=== PATIENT | female | born 1985 | race Caucasian/White ===

== ENCOUNTER 2021-02-25 09:24 | Inpatient (IN) ==
[2021-02-25] MEDS ORDERED: KETOROLAC TROMETHAMINE 15 MG/ML VIAL IV STA (09:37)
[2021-02-25] MEDS ORDERED: SODIUM CHLORIDE 0.9% 1000ML 1,000 ML IV ONE ×2 (09:37→12:22)
[2021-02-25] MEDS ORDERED: ONDANSETRON INJ 2 MG/ML 2 ML VIAL IV STA (09:37)
--- NOTE | 2021-02-25 09:44 | Emergency Department Note ---
History of Present Illness General Chief complaint: Abdominal Pain Stated complaint: AB PAIN Time Seen by Provider: 02/25/21 09:24 Source: patient Mode of arrival: ambulatory Limitations: no limitations History of Present Illness Maximum Pain Intensity: 7 This patient is a 36-year-old female who presents to the emergency department for evaluation of back pain. Patient states that she initially developed some back pain about 1 week ago. She initially thought it was a muscle spasm. She states that the pain was intermittent at that time. She states this also started a day after eating ice cream, which typically does give her some gas and she thought this may be related. Throughout the week, her pain was in termittent, mild and easily treated with Advil. She states that this morning, she developed severe pain in the left side of the back, around the area of her lower ribs. She had her massage the area which initially seemed to help, but she began feeling worse. She states that the pain radiates from her left flank down into her pelvis and lower abdomen. She rates her current discomfort an 8/10 but states that the pain intermittently becomes more severe, up to a 10/10. She did take 2 Advil this morning. She vomited twice prior to arrival. She was given 5 mg of morphine and 4 mg of Zofran in the ambulance which did help somewhat. She denies any history of similar symptoms. She de nies any injury to the back. She denies urinary symptoms or fevers. She has had a prior tubal ligation. Home Medications Medication Instructions Recorded Confirmed Type No Known Home Medications 02/25/21 02/25/21 History Allergies Allergy/AdvReac Type Severity Reaction Status Date / Time shellfish derived Allergy Intermediate HIVES Verified 02/25/21 11:37 bee venom protein (honey bee) Allergy Mild RASH Verified 02/25/21 11:37 Past Med/Surg History Medical History Asthma mild, rarely requires inhaler Psoriasis Tobacco use Surgical History H/O tubal ligation Social History Smoking Status: Current every day smoker Tobacco Type: Cigarettes Cigarettes Per Day: 8-10; Second Hand Exposure: No; Do You Dip or Chew Tobacco: No; Tobacco Cessation Education Requested by Patient: No Hx Alcohol Use: Yes Alcohol type: wine Hx Substance Use: No Preferred Language: Malawian Communication Ability: Effective 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 Beliefs That Will Affect Care: None Current Living Situation: Spouse Other Information That Helps Us Care for You: No Feels Safe at Home: Yes Safety Concerns: Feels Safe At This Time Assistive Devices: Glasses Review of Systems A total of 10 systems reviewed and were otherwise negative Physical Exam Vital Signs Vital Signs - 24 hr 02/25/21 09:28 02/25/21 09:29 02/25/21 09:39 Temperature 36.5 C Temperature Source Oral Pulse Rate 46 L 75 Pulse Rate from SpO2 Sensor 45 L Respiratory Rate 20 18 Respiratory Effort / Characteristics Non-Labored Spontaneous Respiratory Depth Normal Blood Pressure 131/75 131/75 Blood Pressure Mean 93 93 Blood Pressure Position Lying Pulse Oximetry 100 100 93 Oxygen Delivery Method Room Air Room Air Sepsis Recent Fever Within 48 Hours No Sepsis New/Unexplained Change in Mental Status No Sepsis Action Taken by Nursing No Action Required VITALS: Vitals are noted on the nurse's note and reviewed by myself. GENERAL: This is a 36-year-old female, in no acute distress but uncomfortable appearing, well-developed well-nourished. SKIN: The skin was without rashes. EARS: External auditory canals clear, tympanic membranes pearly peacock without erythema or effusion bilaterally. EYES: Pupils equal round and reactive to light and accommodation. MOUTH: Mucous membranes moist. NECK: Supple without nuchal rigidity. No lymphadenopathy. HEART: Regular rate and rhythm without murmurs gallops or rubs. LUNGS: Clear to auscultation bilaterally without wheezes, rales or rhonchi. ABDOMEN: Positive bowel sounds x 4. Soft, nontender to palpation. No guarding or rebound tenderness. Positive left CVA tenderness. NEURO: Patient was alert and oriented to person place and time. Course Administered Medications Morphine Sulfate (Morphine Sulfate 4 Mg/Ml 1 Ml Carp\Vial) 4 mg IV Q4H PRN PRN Reason: pain Stop: 03/11/21 13:11 Last Admin: 02/25/21 14:21 Dose: 4 mg Documented by: [id number] Discontinued Medications Hydromorphone HCl (Hydromorphone Inj 0.5 Mg/0.5 Ml Syr) 0.5 mg IV NOW STA Stop: 02/25/21 11:25 Last Admin: 02/25/21 11:45 Dose: 0.5 mg Documented by: [id number] Sodium Chloride (Nss 1000ml) 1,000 mls @ 999 mls/hr IV .Q1H1M ONE Stop: 02/25/21 10:37 Last Infusion: 02/25/21 12:52 Dose: 0 mls/hr Documented by: [id number] Admin: 02/25/21 09:53 Dose: 999 mls/hr Documented by: [id number] Sodium Chloride (Nss 1000ml) 1,000 mls @ 999 mls/hr IV .Q1H1M ONE Stop: 02/25/21 13:22 Last Infusion: 02/25/21 14:17 Dose: 0 mls/hr Documented by: [id number] Admin: 02/25/21 13:07 Dose: 999 mls/hr Documented by: [id number] Ketorolac Tromethamine (Ketorolac Tromethamine 15 Mg/Ml Vial) 15 mg IV NOW STA Stop: 02/25/21 09:38 Last Admin: 02/25/21 09:54 Dose: 15 mg Documented by: [id number] Ondansetron HCl (Ondansetron Inj 2 Mg/Ml 2 Ml Vial) 4 mg IV NOW STA Stop: 02/25/21 09:38 Last Admin: 02/25/21 09:54 Dose: 4 mg Documented by: [id number] Tamsulosin HCl (Tamsulosin Hcl 0.4 Mg Cap) 0.4 mg PO NOW ONE Stop: 02/25/21 13:16 Last Admin: 02/25/21 14:06 Dose: Not Given Documented by: [id number] Tamsulosin HCl (Tamsulosin Hcl 0.4 Mg Cap) Confirm Administered Dose 0.4 mg .ROUTE .STK-MED ONE Stop: 02/25/21 13:38 Last Admin: 02/25/21 13:40 Dose: 0.4 mg Documented by: [id number] Medical Decision Making Differential Diagnosis Differential diagnosis includes renal calculus, pyelonephritis, musculoskeletal pain, ruptured AAA, aortic dissection, diverticulitis, perforated viscus, bowel obstruction, biliary pathology, pancreatitis, PE, pneumonia, pneumothorax, trauma, herpes zoster, malignancy, among others. Home Medications Current Medication List: was personally reviewed by me Laboratory Data Attestation: I reviewed the patient's lab results. Result diagrams: 02/25/21 09:32 02/25/21 09:32 Lab Results 02/25/21 02/25/21 Range/Units 09:32 09:32 WBC 14.46 H (4.8-10.8) K/uL RBC 4.98 (4.2-5.4) M/uL Hgb 14.7 (12.0-16.0) g/dL Hct 43.5 (37-47) % MCV 87.3 (80-100) fL MCH 29.5 (25-34) pg MCHC 33.8 (32-36) g/dL RDW Std Deviation 43.9 (36.4-46.3) fL RDW Coeff of Gisel 13.7 (11.5-14.5) % Plt Count 249 (130-400) K/uL MPV 11.1 H (7.4-10.4) fL Immature Gran % (Auto) 0.3 % Neut % (Auto) 84.7 % Lymph % (Auto) 9.9 % Door % (Auto) 4.1 % Eos % (Auto) 0.9 % Baso % (Auto) 0.1 % Neut # (Auto) 12.24 H (1.4-6.5) K/uL Lymph # (Auto) 1.43 (1.2-3.4) K/uL Door # (Auto) 0.59 (0.11-0.59) K/uL Eos # (Auto) 0.13 (0-0.5) K/uL Baso # (Auto) 0.02 (0-0.2) K/uL Immature Gran # (Auto) 0.05 H (0.00-0.02) K/uL Sodium 139 (136-145) mmol/L Potassium 3.8 (3.5-5.1) mmol/L Chloride 110 H (98-107) mmol/L Carbon Dioxide 25 (21-32) mmol/L Anion Gap 4.0 (3-11) BUN 12 (7-18) mg/dl Creatinine 0.65 (0.6-1.2) mg/dl Est Cr Clr Drug Dosing 116.7 ml/min Est GFR ( Amer) 132.4 ml/min Est GFR (Non-Af Amer) 114.2 ml/min BUN/Creatinine Ratio 19.0 (10-20) Glucose 100 H (70-99) mg/dl Calcium 8.9 (8.5-10.1) mg/dl Total Bilirubin 0.6 (0.2-1) mg/dl AST 13 L (15-37) U/L ALT 20 (12-78) U/L Alkaline Phosphatase 58 (45-117) U/L Total Protein 7.2 (6.4-8.2) gm/dl Albumin 3.8 (3.4-5.0) gm/dl Globulin 3.4 (2.5-4.0) gm/dl Albumin/Globulin Ratio 1.1 (0.9-2) Lipase 95 (73-393) U/L Imaging Data Attestation: I personally reviewed and interpreted this imaging study as follows: Radiologist's Impression: Abdomen/Pelvis CT 02/25/21 09:44 CT SCAN OF THE ABDOMEN AND PELVIS WITHOUT CONTRAST CLINICAL HISTORY: left flank pain COMPARISON STUDY: No previous studies for comparison. TECHNIQUE: CT scan of the abdomen and pelvis was performed from the lung bases to the proximal femurs. Images are reviewed in the axial, sagittal, and coronal planes. IV contrast was not administered for this examination. A dose lowering technique was utilized adhering to the principles of ALARA. CT DOSE: 369.78 mGy.cm FINDINGS: Lower chest: Minimal atelectasis at dependent portions of bilateral lower lobes. Liver: The unenhanced liver is normal in size, contour, and attenuation. There is no intrahepatic biliary ductal dilatation. Gallbladder: Unremarkable. Spleen: Normal in size and attenuation. Pancreas: Unremarkable. Adrenal glands: Unremarkable. Kidneys: No hydronephrosis or nephrolithiasis is seen on the right. Mild hydronephrosis is seen on the left with few calculi within left renal pelvis measuring up to 4 mm. Also there are a few calculi are seen within slightly dilated proximal left ureter measuring up to 7 mm in size. Distal portion of the left ureter is not well visualized. Overall evaluation is limited due to very little amount of intra-abdominal fat. Bowel: Bowel loops are nondilated. Appendix is not well seen. Evaluation is limited due to lack of contrast and very little amount of intra-abdominal fat. Peritoneum: There is no intraperitoneal free air or abdominal ascites. Vasculature: The abdominal aorta is normal in course and caliber. Adenopathy: None. Pelvic viscera: Urinary bladder is adequately filled with urine. Multiple calcifications are seen within pelvic region likely representing phleboliths. There is a prominent uterine cavity and mild enlargement of the lower uterine segment are seen. No definite free fluid is seen within cul-de-sac however there is minimal diffuse fat stranding within lower abdomen of unclear etiology. Overall evaluation is limited due to lack of IV contrast and very little amount of intra-abdominal fat. Skeletal structures: No significant degenerative changes are seen. IMPRESSION: 1. Few obstructive calculi measuring up to 7 mm in size are seen within proximal portion of the left ureter and associated with mild proximal hydrourete r and hydronephrosis on the left. Few calculi are seen within left renal pelvis. 2. Prominent lower uterine segment and mild ill-defined fat stranding within pelvic region. Evaluation is limited due to lack of IV contrast and very little amount of intra-abdominal fat. 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 3. Appendix is not well seen. 4. Additional findings as above. ACT 112: Negative or not required by law. The above report was generated using voice recognition software. It may contain grammatical, syntax or spelling errors. Electronically signed by: Yanet Young DO 02/25/2021 10:45 AM MDM Narrative Continuous psychiatry instructor: Order was placed for continuous psychiatry instructor. Patient was placed on the psychiatry instructor. Patient was noted to be in sinus bradycardia at an initial rate of 49 bpm. The patient is a 36-year-old female who presents today complaining of left-sided flank pain and pelvic pain. Patient has been having intermittent left flank pain for the past 1 week, pain worsened significantly this morning. Labs revealed a leukocytosis of 14,000, no anemia or concerning electrolyte abnormalities. Kidney function within normal limits. Urinalysis was not suggestive of infection. CT scan showed a 7 mm stone in the proximal left ureter. Patient treated with multiple doses of IV pain medication, fluids and nausea medication and did have continued pain. Given the size and location of her stone, I think it is unlikely the patient will be able to pass this on her own. Urology was consulted and the [facility] hospitalist was consulted to admit the patient for further care. Impression & Plan Calculus of proximal left ureter Discharge Plan Visit Data Chief Complaint: Abdominal Pain Stated Complaint: AB PAIN ED Provider: Mervin Marti ED Midlevel Provider: Rufina Caro Discharge Problem: Calculus of proximal left ureter
[2021-02-25 10:24] LABS: Basophils # (auto) 0.02 K/uL (0-0.2); Basophils % (auto) 0.1 %; Eosinophils # (auto) 0.13 K/uL (0-0.5); Eosinophils % (auto) 0.9 %; Hematocrit (blood only) 43.5 % (37-47); Hemoglobin 14.7 g/dL (12.0-16.0); Immature Granulocytes # (auto) 0.05 K/uL (0.00-0.02); Immature Granulocytes % (auto) 0.3 %; Lymphocytes # (auto) 1.43 K/uL (1.2-3.4); Lymphocytes % (auto) 9.9 %; Mean Corpuscular Hemoglobin 29.5 pg (25-34); Mean Corpuscular Hgb Conc 33.8 g/dL (32-36); Mean Corpuscular Volume 87.3 fL (80-100); Mean Platelet Volume 11.1 fL (7.4-10.4); Monocytes # (auto) 0.59 K/uL (0.11-0.59); Monocytes % (auto) 4.1 %; Neutrophils # (auto) 12.24 K/uL (1.4-6.5); Neutrophils % (auto) 84.7 %; Platelet Count 249 K/uL (130-400); RDW Coefficient of Variation 13.7 % (11.5-14.5); RDW Standard Deviation 43.9 fL (36.4-46.3); Red Blood Count 4.98 M/uL (4.2-5.4); White Blood Count 14.46 K/uL (4.8-10.8)
[2021-02-25 10:42] LABS: Albumin Level 3.8 gm/dl (3.4-5.0); Calcium 8.9 mg/dl (8.5-10.1); Creatinine Clr Calc Pharmacy 116.7 ml/min; Est GFR (African American) 132.4 ml/min; Est GFR (Non-African American) 114.2 ml/min; Potassium 3.8 mmol/L (3.5-5.1)
[2021-02-25 10:44] LABS: Albumin Globulin Ratio 1.1 (0.9-2); Bilirubin,Total 0.6 mg/dl (0.2-1); Globulin 3.4 gm/dl (2.5-4.0); Total Protein 7.2 gm/dl (6.4-8.2)
--- NOTE | 2021-02-25 10:46 | CT Scan Report ---
CT SCAN OF THE ABDOMEN AND PELVIS WITHOUT CONTRAST CLINICAL HISTORY: left flank pain COMPARISON STUDY: No previous studies for comparison. TECHNIQUE: CT scan of the abdomen and pelvis was performed from the lung bases to the proximal femurs . Images are reviewed in the axial, sagittal, and coronal planes. IV contrast was not administered fo r this examination. A dose lowering technique was utilized adhering to the principles of ALARA. CT DOSE: 369.78 mGy.cm FINDINGS: Lower chest: Minimal atelectasis at dependent portions of bilateral lower lobes. Liver: The unenhanced liver is normal in size, contour, and attenuation. There is no intrahepatic dileep iary ductal dilatation. Gallbladder: Unremarkable. Spleen: Normal in size and attenuation. Pancreas: Unremarkable. Adrenal glands: Unremarkable. Kidneys: No hydronephrosis or nephrolithiasis is seen on the right. Mild hydronephrosis is seen on the left with few calculi within left renal pelvis measuring up to 4 m m. Also there are a few calculi are seen within slightly dilated proximal left ureter measuring up to 7 mm in size. Distal portion of the left ureter is not well visualized. Overall evaluation is limite d due to very little amount of intra-abdominal fat. Bowel: Bowel loops are nondilated. Appendix is not well seen. Evaluation is limited due to lack of co ntrast and very little amount of intra-abdominal fat. Peritoneum: There is no intraperitoneal free air or abdominal ascites. Vasculature: The abdominal aorta is normal in course and caliber. Adenopathy: None. Pelvic viscera: Urinary bladder is adequately filled with urine. Multiple calcifications are seen wit hin pelvic region likely representing phleboliths. There is a prominent uterine cavity and mild enlar gement of the lower uterine segment are seen. No definite free fluid is seen within cul-de-sac howeve r there is minimal diffuse fat stranding within lower abdomen of unclear etiology. Overall evaluation is limited due to lack of IV contrast and very little amount of intra-abdominal fat. Skeletal structures: No significant degenerative changes are seen. IMPRESSION: 1. Few obstructive calculi measuring up to 7 mm in size are seen within proximal portion of the left ureter and associated with mild proximal hydroureter and hydronephrosis on the left. Few calculi are seen within left renal pelvis. 2. Prominent lower uterine segment and mild ill-defined fat stranding within pelvic region. Evaluati on is limited due to lack of IV contrast and very little amount of intra-abdominal fat. 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 3. Appendix is not well seen. 4. Additional findings as above. ACT 112: Negative or not required by law. The above report was generated using voice recognition software. It may contain grammatical, syntax o r spelling errors. Electronically signed by: Yanet Young DO 02/25/2021 10:45 AM
[2021-02-25] MEDS ORDERED: HYDROmorphone INJ 0.5 MG/0.5 ML SYR IV STA ×2 (11:24→15:34)
[2021-02-25] MEDS ORDERED: MoRPHine SULFATE 4 MG/ML 1 ML CARP\\VIAL IV PRN (13:12)
[2021-02-25] MEDS ORDERED: TAMSULOSIN HCL 0.4 MG CAP PO ONE (13:15)
[2021-02-25 13:33] LABS: Appearance Urine Clear (Clear); Bacteria Urine Automated Negative (Negative); Blood Urine 3+ (Negative); Color Urine Dark Yellow; Epithelial Cell Urine Auto 20-30 /lpf (0-5); Glucose Urine UA Negative (Negative); Ketones Urine 3+ (Negative); Leukocyte Esterase Urine Trace (Negative); Nitrite Urine Negative (Negative); Protein Urine 1+ (Negative); RBC Urine Automated >30 /hpf (0-4); Specific Gravity Urine 1.029 (1.000-1.030); Urobilinogen Urine Negative (Negative); pH Urine 6.5 (4.5-7.5)
[2021-02-25] MEDS ORDERED: TAMSULOSIN HCL 0.4 MG CAP ONE (13:37)
[2021-02-25 13:48] LABS: Bilirubin Urine 1+ (Negative)
--- NOTE | 2021-02-25 14:42 | Urology Consultation ---
Date of Consultation February 25, 2021 Assessment & Plan (1) Calculus of proximal left ureter: 36 yo F admitted for left flank pain secondary to a 7 mm proximal left ureteral stone with mild proximal hydronephrosis and hydroureter. - Afebrile, nontoxic, lab work reviewed - WBC 14.46, Creatinine 0.65. - UA not suggestive of infection, no urine culture pending at this time. - Discussed options for stone management including surgical intervention with ESWL or stent placement while inpatient. - Procedures, success rates, risks, benefits and clinical courses reviewed. - Stone free rates were discussed as well as possibility of multiple procedures. - Ureteral stents were discussed as well as post-operative issues and pain management. - No acute intervention planned today. - Make NPO at [facility] for reassessment in AM. - Continue supportive care and management per primary team. - KUB reviewed and shows stone visibility - she is a candidate for outpatient ESWL if pain can be managed. Please consult our service urgently if patient develops fever >101F, intractable pain or nausea, as this will necessitate urgent surgical intervention. Thank you for the consultation and we will continue to monitor closely with primary service. History of Present Illness Reason for Consultation: left proximal ureteral stone Requesting Physician: Dr. Rhodes Attending Physician: Dr. Rhodes History of Present Illness 36 year old female with past medical history of asthma, psoriasis, and tobacco use admitted for left flank pain secondary to a 7 mm proximal left ureteral stone with mild proximal hydronephrosis and hydroureter. She presented to [facility] emergency department on 02/25/21 with c/o left abdominal and flank pain x 1 week. Pain worsened today prompting ER evaluation. Afebrile on arrival. Lab work showed mild leukocytosis of 14.46, creatinine 0.65, Hgb 14.7. UA showed >30 RBCs, trace leukocytes, 1-5 WBCs, 20-30 epithelials, negative for nitrates and bacteria. CTAP without contrast demonstrated few obstructive calculi measuring up to 7 mm within proximal portion of the left ureter, associated mild proximal hydroureter and hydronephrosis on the left. Few calculi are seen within left renal pelvis. She was treated with IV fluids, Tamsulosin, Ketorolac, Ondansetron, Morphine and Hydromorphone in ED. She was admitted to hospital medicine for further management. Our service is consulted for left proximal ureteral stone. Patient seen and examined in ER. She is awake and resting in litter. She notes pain in her left flank/abdomen, starting to intensify during our interview. Reports nausea and vomiting prior to arrival, but not at present. She is voiding spontaneously. No dysuria or gross hematuria, though notes that her urine was darker. LBM yesterday. No fever or chills. No CP or SOB. Covid test obtained and negative. Hx of tubal ligation, test pending. No prior stone history. Family history of stones - possibly her mother. No family hx of prostate, bladder, or kidney cancer. No additional concerns today. Allergies Allergy/AdvReac Type Severity Reaction Status Date / Time shellfish derived Allergy Intermediate HIVES Verified 02/25/21 11:37 bee venom protein (honey bee) Allergy Mild RASH Verified 02/25/21 11:37 Home Medications Medication Instructions Recorded Confirmed Type No Known Home Medications 02/25/21 02/25/21 History Patient History Medical History Asthma mild, rarely requires inhaler Surgical History H/O tubal ligation Social History Smoking Status: Current every day smoker Tobacco Type: Cigarettes Cigarettes Per Day: 8-10; Second Hand Exposure: No; Do You Dip or Chew Tobacco: No; Tobacco Cessation Education Requested by Patient: No Hx Alcohol Use: Yes Alcohol type: wine Hx Substance Use: No Preferred Language: Croatian Communication Ability: Effective 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 Beliefs That Will Affect Care: None Current Living Situation: Spouse Other Information That Helps Us Care for You: No Feels Safe at Home: Yes Safety Concerns: Feels Safe At This Time Assistive Devices: Glasses Review of Systems Constitutional: as per Subjective / HPI Eyes: no problem reported Respiratory: as per Subjective / HPI Cardiovascular: as per Subjective / HPI Gastrointestinal: as per Subjective / HPI Genitourinary: as per Subjective / HPI Integumentary: reports hx of psoriasis Neurologic: no problem reported Psychiatric: no problem reported Physical Exam Constitutional: well developed and well nourished; no acute distress and not ill appearing Respiratory: normal respiratory effort and able to speak in complete sente nces; no respiratory distress and no labored breathing Cardiovascular: Extremities: no pedal edema Gastrointestinal (Abdomen): Inspection/Auscultation: abdomen normal to inspection; abdomen not distended Percussion/Palpation: abdomen soft; abdomen nontender Musculoskeletal: Head/Neck/Chest: normocephalic and head atraumatic Extremities: extremities normal to inspection Skin: warm and dry, no rashes to exposed skin Neurologic: moves all extremities and awake Psychiatric: A+Ox3, euthymic affect Genitourinary: + CVA tenderness (mild tenderness to palpation on left) Results & Data ([facility]) Vital Signs (Past 12 Hours) Vital Signs Temp Pulse Pulse Resp BP BP Pulse Ox 02/25/21 13:41 421 H 16 119/67 98 02/25/21 12:00 46 L 14 121/74 93 02/25/21 11:56 54 L 14 116/74 94 02/25/21 09:39 93 02/25/21 09:29 75 18 131/75 100 02/25/21 09:28 36.5 C 46 L 20 131/[address] SCAN OF THE ABDOMEN AND PELVIS WITHOUT CONTRAST CLINICAL HISTORY: left flank pain COMPARISON STUDY: No previous studies for comparison. TECHNIQUE: CT scan of the abdomen and pelvis was performed from the lung bases to the proximal femurs. Images are reviewed in the axial, sagittal, and coronal planes. IV contrast was not administered for this examination. A dose lowering technique was utilized adhering to the principles of ALARA. CT DOSE: 369.78 mGy.cm FINDINGS: Lower chest: Minimal atelectasis at dependent portions of bilateral lower lobes. Liver: The unenhanced liver is normal in size, contour, and attenuation. There is no intrahepatic biliary ductal dilatation. Gallbladder: Unremarkable. Spleen: Normal in size and attenuation. Pancreas: Unremarkable. Adrenal glands: Unremarkable. Kidneys: No hydronephrosis or nephrolithiasis is seen on the right. Mild hydronephrosis is seen on the left with few calculi within left renal pelvis measuring up to 4 mm. Also there are a few calculi are seen within slightly dilated proximal left ureter measuring up to 7 mm in size. Distal portion of the left ureter is not well visualized. Overall evaluation is limited due to very little amount of intra-abdominal fat. Bowel: Bowel loops are nondilated. Appendix is not well seen. Evaluation is limited due to lack of contrast and very little amount of intra-abdominal fat. Peritoneum: There is no intraperitoneal free air or abdominal ascites. Vasculature: The abdominal aorta is normal in course and caliber. Adenopathy: None. Pelvic viscera: Urinary bladder is adequately filled with urine. Multiple calcifications are seen within pelvic region likely representing phleboliths. There is a prominent uterine cavity and mild enlargement of the lower uterine segment are seen. No definite free fluid is seen within cul-de-sac however there is minimal diffuse fat stranding within lower abdomen of unclear etiology. Overall evaluation is limited due to lack of IV contrast and very little amount of intra-abdominal fat. Skeletal structures: No significant degenerative changes are seen. IMPRESSION: 1. Few obstructive calculi measuring up to 7 mm in size are seen within proximal portion of the left ureter and associated with mild proximal hydroureter and hydronephrosis on the left. Few calculi are seen within left renal pelvis. 2. Prominent lower uterine segment and mild ill-defined fat stranding within pelvic region. Evaluation is limited due to lack of IV contrast and very little amount of intra-abdominal fat. 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 3. Appendix is not well seen. 4. Additional findings as above. PG Care Time/CCT Total # of Minutes Spent Total Time Spent with Patient: Total time spent is greater than 50% in coordination of care (as documented) at patient's floor/unit and/or counseling patient: Coding Level of Care Code 41354 Inpt Consult Level 4 Diagnoses Calculus of proximal left ureter N20.1
--- NOTE | 2021-02-25 14:57 | XRay Report ---
KUB HISTORY: Follow-up left renal calculi COMPARISON: Abdomen and pelvis CT 02/25/2021. FINDINGS: The bowel gas pattern is unremarkable. There are no dilated loops of small bowel to suggest an obstruction. Again noted 2 adjacent stones within the proximal left ureter which are unchanged i n position. Dominant stone measures 5 mm. There are few punctate left renal calculi. No definite righ t renal calculi. Calcifications in the deep pelvis likely represent phleboliths. No pneumoperitoneum or pneumatosis. IMPRESSION: No change in the proximal left ureteral stones and left-sided nephrolithiasis. ACT 112: Negative or not required by law. Electronically signed by: Deion Bowers M.D. 02/25/2021 2:56 PM
[2021-02-25] MEDS ORDERED: HYDROmorphone INJ 0.5 MG/0.5 ML SYR IV PRN (15:34)
--- NOTE | 2021-02-25 15:44 | History & Physical Report ---
Date of Service February 25, 2021 Assessment & Plan (1) Ureteral colic: Plan: Cont pain medications and anti-emetics as needed. Given Flomax in the ER and continue this daily. Start IVF and encourage hydration. Urology consulted and considering procedure in am. NPO p MN. (2) Calculus of proximal left ureter: Plan: same as above. Management per Urology (3) Psoriasis: Plan: Uses PRN topical treatments. Not using anything at this time. (4) Tobacco use: Plan: Encouraged to quit smoking, declined nicotine supplementation at this time. (5) DVT prophylaxis: Plan: SCDs/ambulation-hold nay chemoprophylaxis in setting of possible upcoming procedure Full Code Dispo-to floor Angely Rhodes DO [facility] Hospitalist Admission and Anticipated Discharge Date Admission Date: February 25, 2021 History of Present Illness Chief Complaint: left flank pain Primary Care Provider: OLEG PCP 36 yo F presented with left flank pain x 1 week. Workup reveals a 7mm ureteral stone with mild hydronephrosis. She is improved after pain medication in the ER and antiemetics. She reports vomiting once at home and once in the ambulance. She feels improved from that standpoint. Her pain is localized to the left flank and doesn't radiate into the groin. She has some radiation into her spine. Sttolss are described as dark and soft and she feels that she is affected by dairy. Denies diarrhea or blood. She denies fevers or chills or any other symptoms at this time. Allergies Allergy/AdvReac Type Severity Reaction Status Date / Time shellfish derived Allergy Intermediate HIVES Verified 02/25/21 11:37 bee venom protein (honey bee) Allergy Mild RASH Verified 02/25/21 11:37 Home Medications Medication Instructions Recorded Confirmed Type No Known Home Medications 02/25/21 02/25/21 History Past Med/Surg History Medical History Asthma mild, rarely requires inhaler Psoriasis Tobacco use Surgical History H/O tubal ligation Social History Smoking Status: Current every day smoker Tobacco Type: Cigarettes Cigarettes Per Day: 8-10; Second Hand Exposure: No; Do You Dip or Chew Tobacco: No; Tobacco Cessation Education Requested by Patient: No Hx Alcohol Use: Yes Alcohol type: wine Hx Substance Use: No Preferred Language: Burmese Communication Ability: Effective Credentialing Manager Required: No Beliefs That Will Affect Care: None Current Living Situation: Spouse Other Information That Helps Us Care for You: No Feels Safe at Home: Yes Safety Concerns: Feels Safe At This Time Assistive Devices: Glasses Review of Systems Review of Systems: All systems were reviewed and negative except as indicated in HPI above. Physical Exam Physical Exam: CONSTITUTIONAL: WNWD, vitals as above, generally well- appearing EYES: normal conjunctivae, no scleral icterus ENT: external ear and nose normal, MMM NECK: trachea midline RESPIRATORY: clear to auscultation bilaterally, no crackles, rales or wheezes, normal respiratory effort CARDIOVASCULAR: regular rate and rhythm, S1 and 2 heard without murmurs, gallops or rubs, no JVD, no peripheral edema CHEST: inspection of chest was normal GASTROINTESTINAL: soft, nontender, nondistended, no guarding. +flank pain on left. MUSCULOSKELETAL: strength 5/5 throughout, head is normocephalic and atraumatic SKIN: warm and dry NEUROLOGIC: CN 2-12 grossly intact, no sensory deficit, normal cognition, normal speech, no gross focal deficits. PSYCHIATRIC: alert cooperative and oriented to person, place and time. Results & Data Results & Data ([facility]) Vital Signs (Past 12 Hours) Vital Signs Temp Pulse Pulse Resp BP BP Pulse Ox 02/25/21 15:11 36.5 C 46 L 14 101/67 97 02/25/21 13:41 421 H 16 119/67 98 02/25/21 12:00 46 L 14 121/74 93 02/25/21 11:56 54 L 14 116/74 94 02/25/21 09:39 93 02/25/21 09:29 75 18 131/75 100 02/25/21 09:28 36.5 C 46 L 20 131/75 100 Laboratory Results Short CBC 02/25/21 Range/Units 09:32 WBC 14.46 H (4.8-10.8) K/uL Hgb 14.7 (12.0-16.0) g/dL Hct 43.5 (37-47) % Plt Count 249 (130-400) K/uL BMP 02/25/21 09:32 Sodium 139 Potassium 3.8 Chloride 110 H Carbon Dioxide 25 BUN 12 Creatinine 0.65 Glucose 100 H Calcium 8.9 Liver Function 02/25/21 Range/Units 09:32 Total Bilirubin 0.6 (0.2-1) mg/dl AST 13 L (15-37) U/L ALT 20 (12-78) U/L Alkaline Phosphatase 58 (45-117) U/L Albumin 3.8 (3.4-5.0) gm/dl Urine 02/25/21 Range/Units 13:00 Urine Color Dark Yellow Urine Appearance Clear (Clear) Urine pH 6.5 (4.5-7.5) Ur Specific [place] 1.029 (1.000-1.030) Urine Protein 1+ H (Negative) Urine Glucose (UA) Negative (Negative) Code Status & VTE Plan VTE Prophylaxis Plan VTE Prophylaxis will be ordered: Yes
[2021-02-25] MEDS ORDERED: SODIUM CHLORIDE 0.9% 1000ML 1,000 ML IV SCH (15:45)
[2021-02-25] MEDS: ONDANSETRON INJ 2 MG/ML 2 ML VIAL IV PRN (17:02)
[2021-02-25] MEDS: SODIUM CHLORIDE 0.9% 1000ML 1,000 ML IV SCH (20:21)
[2021-02-25] MEDS: HYDROmorphone INJ 0.5 MG/0.5 ML SYR IV PRN ×2 (20:21→22:46)
[2021-02-26] MEDS: ACETAMINOPHEN 325 MG TAB PO PRN ×2 (00:32→19:41)
[2021-02-26] MEDS: SODIUM CHLORIDE 0.9% 1000ML 1,000 ML IV SCH ×3 (03:12→16:06)
[2021-02-26] MEDS: HYDROmorphone INJ 0.5 MG/0.5 ML SYR IV PRN ×3 (04:28→09:52)
[2021-02-26] MEDS: ONDANSETRON INJ 2 MG/ML 2 ML VIAL IV PRN (04:40)
[2021-02-26 06:28] LABS: Hematocrit (blood only) 37.8 % (37-47); Hemoglobin 12.5 g/dL (12.0-16.0); Mean Corpuscular Hemoglobin 29.7 pg (25-34); Mean Corpuscular Hgb Conc 33.1 g/dL (32-36); Mean Corpuscular Volume 89.8 fL (80-100); Mean Platelet Volume 11.1 fL (7.4-10.4); Platelet Count 197 K/uL (130-400); RDW Coefficient of Variation 13.7 % (11.5-14.5); RDW Standard Deviation 45.4 fL (36.4-46.3); Red Blood Count 4.21 M/uL (4.2-5.4); White Blood Count 12.08 K/uL (4.8-10.8)
[2021-02-26 07:09] LABS: Calcium 7.6 mg/dl (8.5-10.1); Est GFR (African American) 129.8 ml/min; Potassium 3.7 mmol/L (3.5-5.1)
[2021-02-26] MEDS: MoRPHine SULFATE 4 MG/ML 1 ML CARP\\VIAL IV PRN (08:37)
[2021-02-26] MEDS: TAMSULOSIN HCL 0.4 MG CAP PO SCH (09:50)
[2021-02-26] MEDS ORDERED: HYDROmorphone INJ 1 MG/ML SYRINGE IV STA (10:51)
--- NOTE | 2021-02-26 11:14 | Urology Progress Note ---
Date of Service February 26, 2021 Assessment & Plan (1) Calculus of proximal left ureter: (2) Flank pain: Plan: 36 yo F admitted for left flank pain secondary to a 7 mm proximal left ureteral stone with mild proximal hydronephrosis and hydroureter. - Afebrile, nontoxic, lab work reviewed - WBC 12.08, Creatinine 0.69. - Discussed options for stone management including surgical intervention with ESWL or stent placement while inpatient. - Procedures, success rates, risks, benefits and clinical courses reviewed. - Stone free rates were discussed as well as possibility of multiple procedures. - Ureteral stents were discussed as well as post-operative issues and pain management. - Patient prefers to proceed with stent placement given her ongoing left flank pain and nausea. - Findings reviewed with Dr. De Anda. Given her intractable left flank pain and nausea in the context of an obstructing 7mm proximal left ureteral stone with hydronephrosis, will proceed with OR for Cystoscopy, Left ureteral stent placement. - Risks and benefits to be reviewed with patient by Dr. De Anda. OR notified. Will cover with IV Ciprofloxacin preoperatively. - Keep NPO - Continue supportive care and pain management. - Expected clinical course reviewed with patient, she is agreeable to plan, all questions were answered. ATTENDING NOTE: Independently evaluated, assessed, interviewed, and examined. Agree with above. Risks and benefits discussed at length for procedure. These include bleeding, infection, injury to surrounding tissues or organs, and risks associated with anesthesia. Patient states understanding and agrees to proceed. Will sign consent and procedure. Plan to proceed with cystoscopy and left stent. Admission and Anticipated Discharge Date Admission Date: February 25, 2021 Subjective Pt examined at bedside this AM. Awake, resting in bed on arrival. She reports ongoing L flank/abdominal pain- utilizing IV Dilaudid/morphine Some nausea, no vomiting. Denies hematuria and dysuria. She reports a slow urinary stream. Has been NPO. She denies any stone passage. She has been straining all urine. Review of Systems Constitutional: as per Subjective / HPI Gastrointestinal: as per Subjective / HPI Genitourinary: as per Subjective / HPI Physical Exam Constitutional: cooperative; no acute distress Respiratory: no labored breathing and no audible wheezes Cardiovascular: Extremities: no pedal edema Gastrointestinal (Abdomen): Inspection/Auscultation: abdomen normal to inspection Musculoskeletal: Head/Neck/Chest: normocephalic and head atraumatic Skin: warm and dry, no rashes to exposed skin Neurologic: moves all extremities and awake Psychiatric: A+Ox3, euthymic affect Genitourinary: + CVA tenderness (mild tenderness to palpation on left) Results & Data ([facility]) Vital Signs (Past 12 Hours) Vital Signs Temp Pulse Resp BP Pulse Ox 02/26/21 07:48 36.6 C 75 16 159/70 H 99 PG Care Time/CCT Total # of Minutes Spent Total Time Spent with Patient: Total time spent is greater than 50% in coordination of care (as documented) at patient's floor/unit and/or counseling patient: Coding Level of Care Code 95533 Subseq Hosp Care Lvl 2 Diagnoses Calculus of proximal left ureter N20.1 Flank pain R10.9
[2021-02-26] MEDS ORDERED: ATROPINE SULFATE 0.1 MG/ML 10ML SYR IV PRN (11:25)
[2021-02-26] MEDS ORDERED: ONDANSETRON INJ 2 MG/ML 2 ML VIAL IV PRN (11:25)
[2021-02-26] MEDS ORDERED: ePHEDrine sulfate 50 MG/ML AMP IV PRN (11:25)
[2021-02-26] MEDS ORDERED: fentaNYL citrate 100 MCG/2 ML VIAL IV PRN (11:25)
--- NOTE | 2021-02-26 11:26 | Anesthesiology Consultation ---
Date of Service February 26, 2021 Assessment & Plan (1) Encounter for pre-operative examination: Chart Review Chart Review: Acceptable Risk for Surgery and Patient NOT seen in Pre Admission Testing Consults Requested none History Surgery Operation Date: 02/26/21 12:00 Proposed Procedures p Cystsocopy, Left Stent Insertion - Tim De Anda, Height/Weight Height: 5 ft 5 in Weight: 69 kg Allergies Allergy/AdvReac Type Severity Reaction Status Date / Time shellfish derived Allergy Intermediate HIVES Verified 02/25/21 11:37 bee venom protein (honey bee) Allergy Mild RASH Verified 02/25/21 11:37 Medications Home Medications Medication Instructions Recorded Confirmed Last Taken No Known Home Medications 02/25/21 02/25/21 Unknown Active Medications Generic Name Dose Route Start Last Admin Trade Name Freq PRN Reason Stop Dose Admin Acetaminophen 650 mg 02/25/21 19:25 02/26/21 00:32 Acetaminophen 325 Mg Tab PO 03/27/21 19:24 650 mg Q4H PRN Administration pain/fever Hydromorphone HCl 0.5 mg 02/25/21 19:25 02/26/21 09:52 Hydromorphone Inj 0.5 Mg/0.5 Ml Syr IV 03/11/21 19:24 0.5 mg Q2H PRN Administration severe pain (scale 7,8,9,10) Sodium Chloride 1,000 mls @ 150 mls/hr 02/25/21 19:25 02/26/21 09:36 Nss 1000ml IV 03/27/21 19:24 150 mls/hr .Q6H40M MARIBEL Administration Morphine Sulfate 4 mg 02/26/21 08:03 02/26/21 08:37 Morphine Sulfate 4 Mg/Ml 1 Ml Carp\Vial IV 03/12/21 08:02 4 mg Q4H PRN Administration Mod Pain (scale 4,5,6) Ondansetron HCl 4 mg 02/25/21 13:12 02/26/21 04:40 Ondansetron Inj 2 Mg/Ml 2 Ml Vial IV 03/27/21 13:14 4 mg Q6H PRN Administration nausea Tamsulosin HCl 0.4 mg 02/26/21 09:00 02/26/21 09:50 Tamsulosin Hcl 0.4 Mg Cap PO 03/28/21 08:59 0.4 mg QAM MARIBEL Administration Past Medical History Medical History Asthma mild, rarely requires inhaler Psoriasis Tobacco use Past Surgical History Surgical History H/O tubal ligation Past Anesthesia History No Hx of Anesthesia Complications and No Family Hx of Anesthesia Complications History of PONV No Hx of PONV and No Hx of Motion Sickness Social History Smoking Status: Current every day smoker tobacco type: cigarettes Smoking cigarettes per day: 8-10 Do You Dip or Chew Tobacco: No Hx Alcohol Use: Yes Alcohol type: wine alcohol intake frequency: holidays/special occasions only Hx Substance Use: No Physical Exam Vital Signs Last Vital Signs Temp 36.6 C 02/26/21 07:48 Pulse 75 02/26/21 07:48 Resp 16 02/26/21 07:48 BP 159/70 H 02/26/21 07:48 Pulse Ox 99 02/26/21 07:48 Testing Laboratory Results 02/26/21 05:41 02/26/21 05:41 Urine Color Dark Yellow 02/25/21 13:00 Urine Appearance Clear (Clear) 02/25/21 13:00 Urine pH 6.5 (4.5-7.5) 02/25/21 13:00 Ur Specific [place] 1.029 (1.000-1.030) 02/25/21 13:00 Urine Protein 1+ (Negative) H 02/25/21 13:00 Urine Glucose (UA) Negative (Negative) 02/25/21 13:00 Urine Ketones 3+ (Negative) H 02/25/21 13:00 Urine Nitrite Negative (Negative) 02/25/21 13:00 Ur Leukocyte Esterase Trace (Negative) H 02/25/21 13:00 Urine WBC (Auto) 1-5 /hpf (0-5) 02/25/21 13:00 Urine RBC (Auto) >30 /hpf (0-4) H 02/25/21 13:00 U Hyaline Cast (Auto) 1-5 /lpf (0-5) 02/25/21 13:00 U Epithel Cells (Auto) 20-30 /lpf (0-5) H 02/25/21 13:00 Urine Bacteria (Auto) Negative (Negative) 02/25/21 13:00 02/25/21 13:08 POC Ur Test Pending
[2021-02-26] MEDS ORDERED: ONDANSETRON INJ 2 MG/ML 2 ML VIAL ONE (11:35)
[2021-02-26] MEDS ORDERED: LIDOCAINE 2% 2 ML VIAL/AMP(20MG/ML) INFIL ONE (11:35)
[2021-02-26] MEDS ORDERED: fentaNYL citrate 100 MCG/2 ML VIAL ONE (11:35)
[2021-02-26] MEDS ORDERED: PROPOFOL IV EMULSION 10 MG/ML 20 ML VIAL IV ONE (11:35)
[2021-02-26] MEDS ORDERED: CIPROFLOXACIN / D5W 400 MG/200 ML BAG IV SCH (11:35)
[2021-02-26] MEDS ORDERED: MIDAZOLAM HCL 1 MG/ML 2ML VIAL ONE (11:36)
[2021-02-26] MEDS ORDERED: DIATRIZOATE MEGLUMINE 30% 100ML VIAL INSTIL ONE (12:33)
--- NOTE | 2021-02-26 12:33 | Operative Report ---
PG Post Operative Report Pre & Post Diagnosis Operation Date: 02/26/21 12:00 Pre-Op Diagnosis: Obstructing stone Post-Op Diagnosis: Obstructing stone I identified the patient and participated in the time-out.: Yes Procedure Operation Date: 02/26/21 12:00 Actual Procedures p Cystsocopy, Left Retrograde Pyelogram, Aspiration; Left Ureter Stent Insertion(Left) - Tim De Anda DO Surgeon Tim De Anda, II, DO Wash Test Checker None Estimated Blood Loss 0 Findings Consistent with Post-Op Diagnosis Stent placed in good position. Significant dark red purulent appearing urine. Specimens Urine for culture left renal pelvis. Drains 6 Fr x 24 Left Anesthesia Type MAC Complications none Disposition Disposition: Recovery Room Indications Patient with obstruction. Risks and benefits discussed at length. Description of Procedure Patient was consented and brought back to the operating room. Patient was placed under anesthesia in the supine position and moved to the dorsal lithotomy position. Patient was prepped and draped in the regular sterile fashion. A time out was completed. A 30degree Cystoscope was placed into the bladder and the entire bladder was examined. The UO's were identified. The UO was cannulized with a catheter, urine was aspirated, and a retrograde trang logram was completed. The dark red and purulent appearing urine was sent for culture. A wire was then placed. With the wire in place, a 6 Fr Double J stent was placed. It was confirmed with fluoroscopy. With the stent in place, the bladder was emptied. The scope was removed. The patient was cleaned, aroused from anesthesia, and transferred to the pacu in stable condition having tolerated the procedure well with no complications. I was present and participated in all aspects of the procedure. The patient will be monitored in the PACU until transferred. Will plan to monitor postoperatively and set up treatment in 1-3 weeks. I attest to the content of the Intraoperative Record and any orders documented therein. Any exceptions are noted below.
--- NOTE | 2021-02-26 12:43 | Fluoroscopy Report ---
FL retrograde includes kub CLINICAL HISTORY: LT CYSTO STENT COMPARISON STUDY: None. FLUOROSCOPY TIME: 52 seconds. FINDINGS: 2 fluoroscopic spot image of the abdomen and pelvis demonstrate opacification of the left r enal collecting system and a left ureteral stent. The ureteral stent appears in good position. IMPRESSION: Fluoroscopy provided for left ureteral stent placement which appears in good position. ACT 112: Negative or not required by law. Electronically signed by: Deion Bowers M.D. 02/26/2021 12:41 PM
--- NOTE | 2021-02-26 14:49 | Hospitalist Progress Note ---
Date of Service February 26, 2021 Assessment & Plan (1) Ureteral colic: Plan: She continues to be in significant pain. Appreciate urology input. Plan to go to the OR today. Remains NPO. Continue with maintenance IV fluids, pain control/antiemetics. Continue with the ciprofloxacin. Urine cultures are pending. Continue Flomax. (2) Calculus of proximal left ureter: Plan: same as above. Management per Urology (3) Psoriasis: Plan: Uses PRN topical treatments. Not using anything at this time. (4) Tobacco use: Plan: Encouraged to quit smoking, declined nicotine supplementation at this time. (5) DVT prophylaxis: Plan: SCDs/ambulation-hold nay chemoprophylaxis in setting of possible upcoming procedure Full Code Dispo-to floor Admission and Anticipated Discharge Date Admission Date: February 25, 2021 Subjective Patient was having significant left flank pain. Reports the pain as 7 out of 10 that radiates to her pelvis. Denies any further episodes of nausea or vomiting. Denies any chest pain or abdominal pain. Denies any dysuria or increased urinary frequency Review of Systems Review of Systems: All systems reviewed & are unremarkable except as noted in HPI & below Physical Exam Physical Exam: General: A&Ox3. tearful HENT: NCAT, MMM, EOMI Eyes: PERRLA Neck: Supple, normal range of motion CVS: normal rate and rhythm Resp: b/l good breath sounds Abdomen: Soft, ND/NT, +BS Extremities: No c/c/e Neuro: face symmetric, strength grossly equal, no focal deficit Skin: warm and dry, no rashes/lesions/errythema MSK: left flank tenderness appreciated Results & Data Results & Data ([facility]) Vital Signs (Past 12 Hours) Vital Signs Temp Pulse Resp BP Pulse Ox 02/26/21 14:30 37 C 62 14 148/67 H 100 02/26/21 13:27 37.1 C 62 18 97/60 L 93 02/26/21 13:15 37.1 C 68 16 107/71 98 02/26/21 12:55 37.9 C H 74 16 106/59 L 94 02/26/21 12:50 73 16 109/60 94 02/26/21 12:41 38.0 C H 72 16 106/55 L 100 02/26/21 11:38 37.3 C 72 20 139/80 96 02/26/21 07:48 36.6 C 75 16 159/70 H 99 Laboratory Results Laboratory Results - last 24 hr 02/26/21 02/26/21 05:41 05:41 WBC 12.08 H RBC 4.21 Hgb 12.5 Hct 37.8 MCV 89.8 MCH 29.7 MCHC 33.1 RDW Std Deviation 45.4 RDW Coeff of Gisel 13.7 Plt Count 197 MPV 11.1 H Sodium 138 Potassium 3.7 Chloride 112 H Carbon Dioxide 24 Anion Gap 2.0 L BUN 9 Creatinine 0.69 Est Cr Clr Drug Dosing 110.0 Est GFR ( Amer) 129.8 Est GFR (Non-Af Amer) 112.0 BUN/Creatinine Ratio 13.0 Glucose 99 Calcium 7.6 L
--- NOTE | 2021-02-26 15:29 | Anesthesiology Progress Note ---
Date of Service February 26, 2021 Anesthesia Post Procedure Vital Signs Vital Signs: Temp Pulse Resp BP Pulse Ox 02/26/21 14:30 37 C 62 14 148/67 H 100 02/26/21 13:27 37.1 C 62 18 97/60 L 93 02/26/21 13:15 37.1 C 68 16 107/71 98 02/26/21 12:55 37.9 C H 74 16 106/59 L 94 02/26/21 12:50 73 16 109/60 94 02/26/21 12:41 38.0 C H 72 16 106/55 L 100 02/26/21 11:38 37.3 C 72 20 139/80 96 02/26/21 07:48 36.6 C 75 16 159/70 H 99 02/25/21 22:49 36.8 C 52 L 18 166/78 H 97 02/25/21 19:00 36.5 C 56 L 18 117/61 95 02/25/21 16:00 46 L 16 120/79 97 Pain Intensity Flank: Pain Intensity: 8 Transfer of Care Handoff Completed per policy Notes Mental Status: alert / awake / arousable and participated in evaluation Patient Amnestic to Procedure: Yes Nausea / Vomiting: adequately controlled Pain: adequately controlled Airway Patency, RR, SpO2: stable & adequate BP & HR: stable & adequate Hydration State: stable & adequate Anesthetic Complications: no major complications apparent and Pt Satisfied with anesthetic care
[2021-02-26] MEDS: PHENAZOPYRIDINE HCL 200 MG TAB PO PRN (21:48)
[2021-02-27 06:42] LABS: Basophils # (auto) 0.01 K/uL (0-0.2); Basophils % (auto) 0.1 %; Eosinophils # (auto) 0.09 K/uL (0-0.5); Eosinophils % (auto) 1.3 %; Hematocrit (blood only) 34.5 % (37-47); Hemoglobin 11.4 g/dL (12.0-16.0); Immature Granulocytes # (auto) 0.01 K/uL (0.00-0.02); Immature Granulocytes % (auto) 0.1 %; Lymphocytes # (auto) 1.88 K/uL (1.2-3.4); Lymphocytes % (auto) 27.1 %; Mean Corpuscular Hemoglobin 29.2 pg (25-34); Mean Corpuscular Volume 88.5 fL (80-100); Mean Platelet Volume 10.5 fL (7.4-10.4); Monocytes # (auto) 0.59 K/uL (0.11-0.59); Monocytes % (auto) 8.5 %; Neutrophils # (auto) 4.37 K/uL (1.4-6.5); Neutrophils % (auto) 62.9 %; Platelet Count 182 K/uL (130-400); RDW Coefficient of Variation 13.6 % (11.5-14.5); RDW Standard Deviation 44.3 fL (36.4-46.3); White Blood Count 6.95 K/uL (4.8-10.8)
[2021-02-27 07:17] LABS: BUN Creatinine Ratio 11.2 (10-20); Creatinine Clr Calc Pharmacy 151.8 ml/min; Est GFR (African American) 144.3 ml/min; Est GFR (Non-African American) 124.5 ml/min; Potassium 3.5 mmol/L (3.5-5.1)
[2021-02-27] MEDS: MoRPHine SULFATE 4 MG/ML 1 ML CARP\\VIAL IV PRN ×4 (07:25→22:40)
--- NOTE | 2021-02-27 07:33 | Urology Progress Note ---
Date of Service February 27, 2021 Assessment & Plan (1) Calculus of proximal left ureter: (2) Flank pain: Plan: 36yo F admitted for left flank pain secondary to a 7 mm proximal left ureteral stone with hydronephrosis and hydroureter. - POD #1 s/p Cystoscopy, Left Retrograde Pyelogram, Aspiration; Left Ureter Stent Insertion with Dr. De Anda. - Patient is doing well, symptoms have improved. - She still reports left flank pain, likely related to the stent. - Afebrile, VSS. - Labs reviewed, Wbc 6.95 and Cr 0.50. - UC&S from ureter preliminary no growth. - Given operative findings including purulent urine, recommend continue broad spectrum antibiotics while awaiting final culture results. - Continue supportive care, antibiotic therapy, and pain control. - Will arrange outpatient follow-up for definitive stone treatment within the next 1-2 weeks. - Recommend home with tamsulosin, prn pyridium, prn pain medication, and antibiotics pending final culture results - Expected clinical course reviewed with patient, all questions were answered. - Thank you for allowing us to participate in the acute care of Ms. De La Paz. Please reconsult us with additional questions, concerns or changes in patient status. Admission and Anticipated Discharge Date Admission Date: February 25, 2021 Subjective Pt examined at bedside this AM. Awake, resting in bed on arrival. Left flank pain has improved, but still present. Denies fevers or chills. No nausea or vomiting. Tolerating PO diet. No hematuria, some dysuria. Feels she is emptying her bladder. Review of Systems Constitutional: as per Subjective / HPI Gastrointestinal: as per Subjective / HPI Genitourinary: as per Subjective / HPI Physical Exam Constitutional: well developed and well nourished; no acute distress Respiratory: normal respiratory effort; no labored breathing and no audible wheezes Gastrointestinal (Abdomen): Inspection/Auscultation: abdomen normal to inspection Skin: Warm and dry Neurologic: awake Psychiatric: Orientation: alert, oriented x 3 and cooperative Results & Data ([facility]) Vital Signs (Past 12 Hours) Vital Signs Temp Pulse Resp BP Pulse Ox 02/27/21 00:34 36.7 C 47 L 16 97/59 L 97 PG Care Time/CCT Total # of Minutes Spent Total Time Spent with Patient: Total time spent is greater than 50% in coordination of care (as documented) at patient's floor/unit and/or counseling patient: Coding Level of Care Code 86353 Subseq Hosp Care Lvl 2 Diagnoses Calculus of proximal left ureter N20.1 Flank pain R10.9
[2021-02-27] MEDS: TAMSULOSIN HCL 0.4 MG CAP PO SCH (08:26)
[2021-02-27] MEDS: PHENAZOPYRIDINE HCL 200 MG TAB PO PRN ×2 (13:02→21:43)
[2021-02-27] MEDS: cefTRIAXone SODIUM 1,000 MG in DEXTROSE 5% 50 ML IV SCH (13:03)
--- NOTE | 2021-02-27 14:20 | Hospitalist Progress Note ---
Date of Service February 27, 2021 Assessment & Plan (1) Ureteral colic: Plan: S/p Cystsocopy, Left Retrograde Pyelogram, Aspiration; Left Ureter Stent Insertion(Left) 02/26 This morning patient is doing okay. Her pain is improved. Remains afebrile. WBC is within normal limit. Appreciate urology input. Given operative findings and purulent urine; recommended to continue with antibiotics until culture results. Start patient on ceftriaxone 1 g daily. Continue Flomax. (2) Calculus of proximal left ureter: Plan: same as above. Management per Urology (3) Psoriasis: Plan: Uses PRN topical treatments. Not using anything at this time. (4) Tobacco use: Plan: Encouraged to quit smoking, declined nicotine supplementation at this time. (5) DVT prophylaxis: Plan: SCDs/ambulation-hold nay chemoprophylaxis in setting of possible upcoming procedure Full Code Dispo-to floor Admission and Anticipated Discharge Date Admission Date: February 25, 2021 Subjective Patient is doing okay. Reports her pain is improved but still present. She has been taking IV morphine. Denies any nausea or vomiting. Denies any chest pain or shortness of breath. Denies any dysuria. Other review of systems negative. Review of Systems Review of Systems: All systems reviewed & are unremarkable except as noted in HPI & below Physical Exam Physical Exam: General: A&Ox3 HENT: NCAT, MMM, EOMI Eyes: PERRLA Neck: Supple, normal range of motion CVS: normal rate and rhythm Resp: b/l good breath sounds Abdomen: Soft, ND/NT, +BS Extremities: No c/c/e Neuro: face symmetric, strength grossly equal, no focal deficit Skin: warm and dry, no rashes/lesions/errythema MSK: left flank tenderness appreciated Results & Data Results & Data ([facility]) Vital Signs (Past 12 Hours) Vital Signs Temp Pulse Resp BP Pulse Ox 02/27/21 09:06 36.9 C 64 16 104/66 94
[2021-02-28] MEDS: TAMSULOSIN HCL 0.4 MG CAP PO SCH (08:30)
[2021-02-28] MEDS: oxyCODONE/ACETAMINOPHEN 5mg/325mg TAB PO PRN ×2 (09:22→13:37)
[2021-02-28] MEDS: PHENAZOPYRIDINE HCL 200 MG TAB PO PRN (09:22)
[2021-02-28] MEDS: cefTRIAXone SODIUM 1,000 MG in DEXTROSE 5% 50 ML IV SCH (12:38)
[2021-02-28] MEDS ORDERED: POLYETHYLENE (MIRALAX) 17 GM PACK PO SCH (13:30)
--- NOTE | 2021-02-28 13:30 | Hospitalist Progress Note ---
Date of Service February 28, 2021 Assessment & Plan (1) Ureteral colic: Plan: S/p Cystsocopy, Left Retrograde Pyelogram, Aspiration; Left Ureter Stent Insertion(Left) 02/26 Pain improved with narcotics-percocet given this morning. Cont supportive management until she feels able to go home. Discussed plan with Urology who recommends definitive outpatient stone management in 1-3 weeks. Will given 7 days of oral cefdinir per their recs with culture unrevealing for a bug. Continue Flomax. PRN pyridium and may also consider B&O suppositories if needed or PRN ditropan. (2) Calculus of proximal left ureter: Plan: definitive management per Urology as above. (3) Psoriasis: Plan: Uses PRN topical treatments. Not using anything at this time. (4) Tobacco use: Plan: Encouraged to quit smoking, declined nicotine supplementation at this time. (5) DVT prophylaxis: Plan: SCDs/ambulation-hold nay chemoprophylaxis in setting of possible upcoming procedure Full Code Dispo-remain hospitalized until she feels her symptoms are well-managed with oral medications. Angely Rhodes DO [facility] and Anticipated Discharge Date Admission Date: February 25, 2021 Subjective 36 yo F with L ureteral stone s/p ureteral stent placement Purulent material seen intraoperatively, however, urine culture results are negative to date Patient with significant L flank pain still requiring opiates, worse when she urinates It appears percocet had made this more manageable She is eating. Afebrile. Ambulating at her baseline Reports constipation and requesting something for this. Review of Systems Review of Systems: All systems were reviewed and negative except as indicated in HPI above. Physical Exam Physical Exam: CONSTITUTIONAL: WNWD, vitals as above, generally well- appearing EYES: normal conjunctivae, no scleral icterus ENT: external ear and nose normal, MMM NECK: trachea midline RESPIRATORY: clear to auscultation bilaterally, no crackles, rales or wheezes, normal respiratory effort CARDIOVASCULAR: regular rate and rhythm, S1 and 2 heard without murmurs, ga llops or rubs, no JVD, no peripheral edema CHEST: inspection of chest was normal GASTROINTESTINAL: soft, nontender, nondistended, no guarding. +flank pain on left. MUSCULOSKELETAL: strength 5/5 throughout, head is normocephalic and atraumatic SKIN: warm and dry NEUROLOGIC: CN 2-12 grossly intact, no sensory deficit, normal cognition, normal speech, no gross focal deficits. PSYCHIATRIC: alert cooperative and oriented to person, place and time. Results & Data Results & Data ([facility]) Vital Signs (Past 12 Hours) Vital Signs Temp Pulse Resp BP Pulse Ox 02/28/21 07:38 36.9 C 53 L 16 108/65 95 Medications Administered Current Inpatient Medications Acetaminophen (Acetaminophen 325 Mg Tab) 650 mg PO Q4H PRN PRN Reason: pain/fever Stop: 03/27/21 19:24 Last Admin: 02/26/21 19:41 Dose: 650 mg Documented by: Docusate Sodium (Docusate Sodium 100 Mg Cap) 100 mg PO BID MARIBEL Stop: 03/30/21 20:59 Hydromorphone HCl (Hydromorphone Inj 0.5 Mg/0.5 Ml Syr) 0.5 mg IV Q2H PRN PRN Reason: severe pain (scale 7,8,9,10) Stop: 03/11/21 19:24 Last Admin: 02/26/21 09:52 Dose: 0.5 mg Documented by: Ceftriaxone Sodium 1,000 mg/ (Dextrose) 60 mls @ 100 mls/hr IV Q24H [facility]; Protocol Stop: 03/01/21 12:29 Last Admin: 02/28/21 12:38 Dose: 100 mls/hr Documented by: Morphine Sulfate (Morphine Sulfate 4 Mg/Ml 1 Ml Carp\Vial) 4 mg IV Q4H PRN PRN Reason: Mod Pain (scale 4,5,6) Stop: 03/12/21 08:02 Last Admin: 02/27/21 22:40 Dose: 4 mg Documented by: Ondansetron HCl (Ondansetron Inj 2 Mg/Ml 2 Ml Vial) 4 mg IV Q6H PRN PRN Reason: nausea Stop: 03/27/21 13:14 Last Admin: 02/26/21 04:40 Dose: 4 mg Documented by: Oxycodone/Acetaminophen (Oxycodone/Acetaminophen 5mg/325mg Tab) 1 tab PO Q4H PRN PRN Reason: Pain Stop: 03/14/21 09:03 Last Admin: 02/28/21 09:22 Dose: 1 tab Documented by: Phenazopyridine HCl (Phenazopyridine Hcl 200 Mg Tab) 200 mg PO TID PRN PRN Reason: Bladder pain Stop: 03/28/21 18:16 Last Admin: 02/28/21 09:22 Dose: 200 mg Documented by: Polyethylene Glycol (Polyethylene (Miralax) 17 Gm Pack) 17 gm PO DAILY [facility] Stop: 03/30/21 13:29 Tamsulosin HCl (Tamsulosin Hcl 0.4 Mg Cap) 0.4 mg PO QAM [facility] Stop: 03/28/21 08:59 Last Admin: 02/28/21 08:30 Dose: 0.4 mg Documented by:
[2021-02-28] MEDS ORDERED: CEFDINIR 300 MG CAP PO SCH (14:00)
--- NOTE | 2021-02-28 15:14 | Discharge Summary ---
Date of Service February 28, 2021 Admission HPI Per Admitting Provider 36 yo F presented with left flank pain x 1 week. Workup reveals a 7mm ureteral stone with mild hydronephrosis. She is improved after pain medication in the ER and antiemetics. She reports vomiting once at home and once in the ambulance. She feels improved from that standpoint. Her pain is localized to the left flank and doesn't radiate into the groin. She has some radiation into her spine. Sttolss are described as dark and soft and she feels that she is affected by dairy. Denies diarrhea or blood. She denies fevers or chills or any other symptoms at this time. Admission Exam Per Admitting Provider 36 yo F presented with left flank pain x 1 week. Workup reveals a 7mm ureteral stone with mild hydronephrosis. She is improved after pain medication in the ER and antiemetics. She reports vomiting once at home and once in the ambulance. She feels improved from that standpoint. Her pain is localized to the left flank and doesn't radiate into the groin. She has some radiation into her spine. Stools are described as dark and soft and she feels that she is affected by dairy. Denies diarrhea or blood. She denies fevers or chills or any other symptoms at this time. Principal Diagnosis Left ureteral stone s/p cystoscopy with left ureteral stent placement complicated urinary tract infection tobacco use Discharge Exam CONSTITUTIONAL: WNWD, vitals as above, generally well-appearing EYES: normal conjunctivae, no scleral icterus ENT: external ear and nose normal, MMM NECK: trachea midline RESPIRATORY: clear to auscultation bilaterally, no crackles, rales or wheezes, normal respiratory effort CARDIOVASCULAR: regular rate and rhythm, S1 and 2 heard without murmurs, gallops or rubs, no JVD, no peripheral edema CHEST: inspection of chest was normal GASTROINTESTINAL: soft, nontender, nondistended, no guarding. +flank pain on left. MUSCULOSKELETAL: strength 5/5 throughout, head is normocephalic and atraumatic SKIN: warm and dry NEUROLOGIC: CN 2-12 grossly intact, no sensory deficit, normal cognition, nor mal speech, no gross focal deficits. PSYCHIATRIC: alert cooperative and oriented to person, place and time. Discharge Data Allergies Allergy/AdvReac Type Severity Reaction Status Date / Time shellfish derived Allergy Intermediate HIVES Verified 02/25/21 11:37 bee venom protein (honey bee) Allergy Mild RASH Verified 02/25/21 11:37 Consultations 02/25/21 11:32 ED Decision to Admit Stat 02/25/21 19:25 Consult Urology Routine Procedures Performed Operation Date: 02/26/21 12:00 Actual Procedures p Left Ureter Stent Insertion(Left) - Tim De Anda DO s Cystsocopy, Left Retrograde, Aspiration;(Left) - Tim De Anda DO Ordered Studies Laboratory Results WBC 6.95 K/uL (4.8-10.8) 02/27/21 06:19 RBC 3.90 M/uL (4.2-5.4) L 02/27/21 06:19 Hgb 11.4 g/dL (12.0-16.0) L 02/27/21 06:19 Hct 34.5 % (37-47) L 02/27/21 06:19 MCV 88.5 fL (80-100) 02/27/21 06:19 MCH 29.2 pg (25-34) 02/27/21 06:19 MCHC 33.0 g/dL (32-36) 02/27/21 06:19 RDW Std Deviation 44.3 fL (36.4-46.3) 02/27/21 06:19 RDW Coeff of Gisel 13.6 % (11.5-14.5) 02/27/21 06:19 Plt Count 182 K/uL (130-400) 02/27/21 06:19 MPV 10.5 fL (7.4-10.4) H 02/27/21 06:19 Immature Gran % (Auto) 0.1 % 02/27/21 06:19 Neut % (Auto) 62.9 % 02/27/21 06:19 Lymph % (Auto) 27.1 % 02/27/21 06:19 [place] % (Auto) 8.5 % 02/27/21 06:19 Eos % (Auto) 1.3 % 02/27/21 06:19 Baso % (Auto) 0.1 % 02/27/21 06:19 Neut # (Auto) 4.37 K/uL (1.4-6.5) 02/27/21 06:19 Lymph # (Auto) 1.88 K/uL (1.2-3.4) 02/27/21 06:19 [place] # (Auto) 0.59 K/uL (0.11-0.59) 02/27/21 06:19 Eos # (Auto) 0.09 K/uL (0-0.5) 02/27/21 06:19 Baso # (Auto) 0.01 K/uL (0-0.2) 02/27/21 06:19 Immature Gran # (Auto) 0.01 K/uL (0.00-0.02) 02/27/21 06:19 Sodium 138 mmol/L (136-145) 02/27/21 06:19 Potassium 3.5 mmol/L (3.5-5.1) 02/27/21 06:19 Chloride 110 mmol/L (98-107) H 02/27/21 06:19 Carbon Dioxide 27 mmol/L (21-32) 02/27/21 06:19 Anion Gap 1.0 (3-11) L 02/27/21 06:19 BUN 6 mg/dl (7-18) L 02/27/21 06:19 Creatinine 0.50 mg/dl (0.6-1.2) L 02/27/21 06:19 Est Cr Clr Drug Dosing 151.8 ml/min 02/27/21 06:19 Est GFR ( Amer) 144.3 ml/min 02/27/21 06:19 Est GFR (Non-Af Amer) 124.5 ml/min 02/27/21 06:19 BUN/Creatinine Ratio 11.2 (10-20) 02/27/21 06:19 Glucose 87 mg/dl (70-99) 02/27/21 06:19 Calcium 8.0 mg/dl (8.5-10.1) L 02/27/21 06:19 Total Bilirubin 0.6 mg/dl (0.2-1) 02/25/21 09:32 AST 13 U/L (15-37) L 02/25/21 09:32 ALT 20 U/L (12-78) 02/25/21 09:32 Alkaline Phosphatase 58 U/L (45-117) 02/25/21 09:32 Total Protein 7.2 gm/dl (6.4-8.2) 02/25/21 09:32 Albumin 3.8 gm/dl (3.4-5.0) 02/25/21 09:32 Globulin 3.4 gm/dl (2.5-4.0) 02/25/21 09:32 Albumin/Globulin Ratio 1.1 (0.9-2) 02/25/21 09:32 Lipase 95 U/L (73-393) 02/25/21 09:32 Urine Color Dark Yellow 02/25/21 13:00 Urine Appearance Clear (Clear) 02/25/21 13:00 Urine pH 6.5 (4.5-7.5) 02/25/21 13:00 Ur Specific Mason 1.029 (1.000-1.030) 02/25/21 13:00 Urine Protein 1+ (Negative) H 02/25/21 13:00 Urine Glucose (UA) Negative (Negative) 02/25/21 13:00 Urine Ketones 3+ (Negative) H 02/25/21 13:00 Urine Blood 3+ (Negative) H 02/25/21 13:00 Urine Nitrite Negative (Negative) 02/25/21 13:00 Urine Bilirubin 1+ (Negative) H 02/25/21 13:00 Urine Urobilinogen Negative (Negative) 02/25/21 13:00 Ur Leukocyte Esterase Trace (Negative) H 02/25/21 13:00 Urine WBC (Auto) 1-5 /hpf (0-5) 02/25/21 13:00 Urine RBC (Auto) >30 /hpf (0-4) H 02/25/21 13:00 U Hyaline Cast (Auto) 1-5 /lpf (0-5) 02/25/21 13:00 U Epithel Cells (Auto) 20-30 /lpf (0-5) H 02/25/21 13:00 Urine Bacteria (Auto) Negative (Negative) 02/25/21 13:00 POC Ur Test Cancelled 02/25/21 13:08 COVID-19 Eval Order Covid19 at [facility] 02/25/21 11:50 SARS-CoV-2 (PCR) NEGATIVE (Negative) 02/25/21 11:50 Impressions Abdomen/Pelvis CT 02/25/21 09:44 CT SCAN OF THE ABDOMEN AND PELVIS WITHOUT CONTRAST CLINICAL HISTORY: left flank pain COMPARISON STUDY: No previous studies for comparison. TECHNIQUE: CT scan of the abdomen and pelvis was performed from the lung bases to the proximal femurs. Images are reviewed in the axial, sagittal, and coronal planes. IV contrast was not administered for this examination. A dose lowering technique was utilized adhering to the principles of ALARA. CT DOSE: 369.78 mGy.cm FINDINGS: Lower chest: Minimal atelectasis at dependent portions of bilateral lower lobes. Liver: The unenhanced liver is normal in size, contour, and attenuation. There is no intrahepatic biliary ductal dilatation. Gallbladder: Unremarkable. Spleen: Normal in size and attenuation. Pancreas: Unremarkable. Adrenal glands: Unremarkable. Kidneys: No hydronephrosis or nephrolithiasis is seen on the right. Mild hydronephrosis is seen on the left with few calculi within left renal pelvis measuring up to 4 mm. Also there are a few calculi are seen within slightly dilated proximal left ureter measuring up to 7 mm in size. Distal portion of the left ureter is not well visualized. Overall evaluation is limited due to very little amount of intra-abdominal fat. Bowel: Bowel loops are nondilated. Appendix is not well seen. Evaluation is limited due to lack of contrast and very little amount of intra-abdominal fat. Peritoneum: There is no intraperitoneal free air or abdominal ascites. Vasculature: The abdominal aorta is normal in course and caliber. Adenopathy: None. Pelvic viscera: Urinary bladder is adequately filled with urine. Multiple calcifications are seen within pelvic region likely representing phleboliths. There is a prominent uterine cavity and mild enlargement of the lower uterine segment are seen. No definite free fluid is seen within cul-de-sac however there is minimal diffuse fat stranding within lower abdomen of unclear etiology. Overall evaluation is limited due to lack of IV contrast and very little amount of intra-abdominal fat. Skeletal structures: No significant degenerative changes are seen. IMPRESSION: 1. Few obstructive calculi measuring up to 7 mm in size are seen within proximal portion of the left ureter and associated with mild proximal hydroureter and hydronephrosis on the left. Few calculi are seen within left renal pelvis. 2. Prominent lower uterine segment and mild ill-defined fat stranding within pelvic region. Evaluation is limited due to lack of IV contrast and very little amount of intra-abdominal fat. Please correlate above-mentioned findings with clinical presentation of pelvic pain and [employer] history. 3. Appendix is not well seen. 4. Additional findings as above. ACT 112: Negative or not required by law. The above report was generated using voice recognition software. It may contain grammatical, syntax or spelling errors. Electronically signed by: Yanet Young DO 02/25/2021 10:45 AM KUB X-Ray 02/25/21 13:34 KUB HISTORY: Follow-up left renal calculi COMPARISON: Abdomen and pelvis CT 02/25/2021. FINDINGS: The bowel gas pattern is unremarkable. There are no dilated loops of small bowel to suggest an obstruction. Again noted 2 adjacent stones within the proximal left ureter which are unchanged in position. Dominant stone measures 5 mm. There are few punctate left renal calculi. No definite right renal calculi. Calcifications in the deep pelvis likely represent phleboliths. No pneumoperitoneum or pneumatosis. IMPRESSION: No change in the proximal left ureteral stones and left-sided nephrolithiasis. ACT 112: Negative or not required by law. Electronically signed by: Deion Bowers M.D. 02/25/2021 2:56 PM Retrograde Pyelogram 02/26/21 11:55 FL retrograde includes kub CLINICAL HISTORY: LT CYSTO STENT COMPARISON STUDY: None. FLUOROSCOPY TIME: 52 seconds. FINDINGS: 2 fluoroscopic spot image of the abdomen and pelvis demonstrate opacification of the left renal collecting system and a left ureteral stent. The ureteral stent appears in good position. IMPRESSION: Fluoroscopy provided for left ureteral stent placement which appears in good position. ACT 112: Negative or not required by law. Electronically signed by: Deion Bowers M.D. 02/26/2021 12:41 PM Hospital Course (1) Ureteral colic: S/p Cystsocopy, Left Retrograde Pyelogram, Aspiration; Left Ureter Stent Insertion(Left) 02/26 Pain well managed with percocet. Discussed plan with Urology who recommends definitive outpatient stone management in 1-3 weeks. Seven days of oral cefdinir per their recs with culture unrevealing for an organism. Continue Flomax. PRN pyridium (2) Calculus of proximal left ureter: definitive management per Urology as above. (3) Psoriasis: Uses PRN topical treatments. Not using anything at this time. (4) Tobacco use: Encouraged to quit smoking, declined nicotine supplementation at this time. Total Time Total Time Spent Total Time Spent (In Minutes): 60 Discharge Plan Discharge Items Patient Disposition: Home - Self-Care Reason For Visit: RENAL CALCULI Discharge Diagnosis: Left ureteral stone s/p cystoscopy with left ureteral stent placement complicated urinary tract infection tobacco use Condition on Discharge: Good Activity: Resume your previous activity Non-emergency contact: Primary Care Provider and Urologist Call non-emergency contact if: you have any medication questions, your symptoms worsen, your pain is not controlled, your pain is worsening, your pain is unusual for you and your pain is concerning for you Follow-up/Referrals: Liliana Branham MD [Outside Practitioners] - (Date & Time 03/03/2021 11:20 AM Provider Liliana Branham MD Department Family Practice [facility] ) Diet: Regular Addtl Attending Provider Instructions: Please take all medications as instructed on medication list below. Your CAT scan of your abdomen and pelvis during this admission revealed "Prominent lower uterine segment and mild ill-defined fat stranding within pelvic region." Please discuss this finding with your primary care physician (PCP) on followup from this hospital stay. If you are still having pelvic discomfort or if there is concern, this may need to be further investigated. It is recommended that you follow up with your PCP at the day and time listed above and with [facility] within 1-2 weeks for definitive stone management. Please utilize the pain medications as needed and you can also use over the counter Ibuprofen or Tylenol. It is strongly recommended that you quit smoking as this is terrible for your health. Please work with your PCP on ways to help accomplish this goal. It was a pleasure taking care of you! Please call if you have any questions or problems. You can reach a [facility] hospitalist on duty at [facility] 24 hours a day by calling [phone]. Take care of yourself. Angely Rhodes, [facility] Hospitalist Pending Studies at Discharge: Yes Studies:: finalized urine culture pending at discharge-preliminary results available. Stand-Alone Forms: My [facility], Smoking Cessation Medications and DC Order Prescriptions: New cefdinir 300 mg Capsule 300 mg PO Q12H Qty: 14 RF: 0 tamsulosin 0.4 mg Capsule 0.4 mg PO QAM Qty: 30 RF: 0 oxycodone-acetaminophen [Percocet] 5-325 mg Tablet 1 tab PO Q4H PRN (Reason: severe pain) Qty: 15 RF: 0 phenazopyridine [Pyridium] 200 mg Tablet 200 mg PO TID PRN (Reason: bladder spasms) Qty: 30 RF: 0 Discharge Orders: Discharge Order (Routine); Ordered 02/28/21 Ordered By: Angely Hansen/Other Patient Handouts: Understanding Kidney Stones, Treating Kidney Stones: Medicines, Preventing Kidney Stones Admission Data Admit Date/Time: 02/25/21 11:49 Attending Provider: Angely Rhodes Admit Provider: Angely Rhodes Primary Care Provider: PCP,NO Other Providers: Angely Rhodes ; Isaac Rendon Other Interventions: Discharge Summary Assessment (RN) Last Done: 02/28/21 15:39
[2021-02-28] MEDS ORDERED: DOCUSATE SODIUM 100 MG CAP PO SCH (21:00)
== END 2021-02-28 16:33 | disposition home or self-care (01) | DRG 694 ==
LOC: ED 09:24 → SUATTDRO 11:49 → EDINP 11:49 → 3W 18:48